=== PATIENT | male | born 1980 | race Caucasian/White ===

== ENCOUNTER 2017-04-15 23:43 | Inpatient (IN) | payer SELFPAY ==
[2017-04-16] MEDS ORDERED: Meclizine HCl 25 MG TAB ONE (01:28)
[2017-04-16 02:48] LABS: Acetaminophen Less than 6.0 mcg/mL (10.0-30.0); Salicylate Less than 8.0 mg/dL (15.0-30.0)
[2017-04-16] MEDS ORDERED: Labetalol HCl 100 MG/20 ML VIAL SLOW IVP PRN (03:38)
[2017-04-16] MEDS ORDERED: hydrALAZINE 20 MG/ML VIAL SLOW IVP PRN ×2 (03:38→03:46)
[2017-04-16] MEDS ORDERED: Calcium Carbonate 500 MG ChewTAB PO PRN (03:41)
[2017-04-16] MEDS ORDERED: Senokot 8.6 MG TAB PO PRN (03:41)
[2017-04-16] MEDS ORDERED: Ondansetron ODT 4 MG TAB PO PRN (03:41)
[2017-04-16] MEDS ORDERED: Ondansetron HCl/PF 4 MG/2 ML Vial IVP PRN (03:41)
[2017-04-16] MEDS ORDERED: cloNIDine 0.1 MG TAB PO PRN (03:46)
[2017-04-16 04:14] LABS: Troponin I Less than 0.010 ng/mL (< 0.028)
[2017-04-16] MEDS: Sodium Chloride 0.9% 1,000 ML IV SCH ×2 (04:31→17:45)
[2017-04-16] MEDS: Meclizine HCl 25 MG TAB PO SCH ×3 (04:32→20:38)
[2017-04-16 04:50] VITALS: BMI 32.1
[2017-04-16 04:56] LABS: Bilirubin Negative (Negative); Blood, Urine Negative (Negative); Glucose, Urine (Dipstick) Negative (Negative); Ketone, Urine Trace mg/dL (Negative); Nitrite Negative (Negative); Protein, Urine (Dipstick) Trace mg/dL (Neg-Trace); Urobilinogen 0.2 mg/dL (0.2-1.0)
[2017-04-16 04:58] LABS: Bacteria/HPF None Seen HPF (None Seen); Hyaline Casts/LPF 0-3 HYALINE CAST LPF (0-3 Hyaline); RBC/HPF 0-3 HPF (0-3); Squamous Epithelial 0-3 HPF (0-3); WBC/HPF 0-3 HPF (0-3)
[2017-04-16 05:15] LABS: Amphetamine Detected (NotDetected); Methadone Not Detected (NotDetected); Methamphetamine Not Detected (NotDetected)
--- NOTE | 2017-04-16 05:48 | HP ---
DATE OF ADMISSION: 04/16/2017 PRIMARY CARE PHYSICIAN: Patient follows a physician at [place]. He is unable to recall the exact n reece. CHIEF COMPLAINT: Dizziness. HISTORY OF PRESENT ILLNESS: Patient is a 36-year-old male with hypertension with ongoing tobacco ab use, presented to the emergency room at [place] with above complaints. Patient felt fine this morn ing. He forgot to take his blood pressure medicine last night, which he took this morning. He had multiple episodes of brief vision loss, lasting for less than 1 second. He had approximately 15 suc h episodes. He then smoked methamphetamine. He then went to work around 6:00 p.m. While at work, he had difficulty with walking and balance. 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 He also had some mild headache and some double vision when he arrived to the emergency room. He was unable to balance himself. He later started having nausea and vomited 5 to 6 times. No similar episode in the past. No chest pain, palpitations, syncope reported. No fever or chills reported. In the emergency room at [place], initial vital signs showed temperature 97.5, respirations 16, pu lse of 59, blood pressure 161/106 with O2 saturation 98% on room air. He received [facility]fr[place] in [place] [facility] [place]. His initial CT scan of the brain at [facility] was negative per ER report. PAST MEDICAL HISTORY: 1. Hypertension. 2. Ongoing tobacco abuse. 3. History of hepatitis C in the past. 4. Anxiety and depression. 5. PVCs requiring ablation in 2013. 6. Hyperlipidemia. PAST SURGICAL HISTORY: 1. Left knee surgery in 2000. 2. Nasal surgery in 1997. 3. PVC ablation x2 in 2013. 4. Cystoscopy and bladder wash, which was negative in 2013. ALLERGIES: Patient denies any drug allergies. CURRENT HOME MEDICATIONS: Patient is unable to recall any of his medications. We will try to obtai n list from the pharmacy. FAMILY HISTORY: Positive for mother with hyperlipidemia and hypertension. REVIEW OF SYSTEMS: The following complete review of systems was negative, unless otherwise mentione d in the HPI or below: CONSTITUTIONAL: Weight loss or gain, ability to conduct usual activities. SKIN: Rash, itching. EYES: Double vision, pain. ENT/MOUTH: Nose bleeding, neck stiffness, pain, tenderness. CARDIOVASCULAR: Palpitations, dyspnea on exertion, orthopnea. RESPIRATORY: Shortness of breath, wheezing, cough, hemoptysis, fever or night sweats. GASTROINTESTINAL: Poor appetite, abdominal pain, heartburn, nausea, vomiting, constipation, or diar og. GENITOURINARY: Urgency, frequency, dysuria, nocturia. MUSCULOSKELETAL: Pain, swelling. NEUROLOGIC/PSYCHIATRIC: Anxiety, depression. ALLERGY/IMMUNOLOGIC: Skin rash, bleeding tendency. SOCIAL HISTORY: Patient smokes on and off. He has used cannabis in the past. He also has a histor y of IV drug abuse in the past. He has been using methamphetamine on and off recently. PHYSICAL EXAMINATION: VITAL SIGNS: As discussed above. GENERAL: A 36-year-old male lying in the bed with eyes closed. No pain reported. Appears comforta ble. HEENT: Head atraumatic, normocephalic. Sclerae are anicteric. Moist mucous membranes. No oral le major. Pupils were equally reacting to light. There was horizontal nystagmus noted. NECK: Supple, no JVD, no neck stiffness. Trachea in midline. LUNGS: Clear to auscultation bilaterally. HEART: S1, S2 present. Regular rate and rhythm. No murmurs, rubs or gallops. ABDOMEN: Soft, nontender, bowel sounds present. EXTREMITIES: No edema or calf tenderness. NEUROLOGIC: Cranial nerves II through XII were normal on examination except for nystagmus. Power w as 5/5 in all extremities. Ebyrgl-wn-oqcy test was normal. Reflexes were equivocal. Sensation to touch was normal bilaterally. Gait was not assessed due to severe dizziness. SKIN: Warm and dry. PSYCHIATRY: Alert, awake, oriented x3. Normal affect. LYMPH NODES: No palpable lymph nodes in the neck. PERIPHERAL VASCULAR: Radial pulses palpable bilaterally. MUSCULOSKELETAL: No joint swelling or tenderness. LABORATORY FINDINGS AND IMAGIN. CBC showed WBC 8.9 with hemoglobin 15.1, hematocrit 45.9, platelets 334. PT, INR, PTT normal ra nge. Urine drug screen is pending at this time. Chemistries showed sodium 137, potassium 4.2, chlo ride 105, bicarbonate 21, BUN 18, creatinine 0.82. 2. CT scan of the brain by my review was negative for acute findings. 3. Telemetry monitoring by my review showed sinus rhythm without significant ST-T wave changes. IMPRESSION: 1. New onset ataxia of unclear etiology. Rule out cerebrovascular accident. 2. Methamphetamine abuse, last used on 04/15. 3. Hypertension. 4. Hyperlipidemia. 5. Ongoing tobacco abuse. 6. Anxiety and depression. Patient denies any suicidal ideation. 7. History of hepatitis C secondary to IV drugs in the past. The patient states that it was treate d by Dr. Castelan. 8. Severe dizziness with nausea and vomiting secondary to #1. PLAN: The patient will be monitored in the stroke unit. Physical therapy and occupational therapy will be consulted. We will get MRI of the brain, noncontrast. We will also get CT angiogram of the neck and head. Aspirin has been started. We will start statins. Fasting lipid profile. We will check vitamin B12 and folic acid. We will start him on scheduled meclizine. Plan of care was discussed with the patient, he stated understanding. The patient will require 2 da ys for stabilization given his considerable dizziness and inability to balance.
[2017-04-16] MEDS: Aspirin 325 mg Enteric Coated Tablet PO SCH (08:47)
[2017-04-16] MEDS ORDERED: FLU VACC QS2017-18 36 mo. & older 0.5 ML SYRINGE IM ONE (09:00)
[2017-04-16] MEDS: Acetaminophen 325 MG TAB PO PRN ×2 (10:44→21:09)
--- NOTE | 2017-04-16 11:30 | MRI ---
MRI OF THE BRAIN WITHOUT CONTRAST: COMPARISON: None. HISTORY: Vestibular stroke with dizziness that began yesterday. Difficulty standing and walking. TECHNIQUE: Multiplanar, multisequence MR images were obtained of the brain without contrast. FINDINGS: The brain demonstrates normal signal intensity on all obtained sequences. No restricted diffusion i s seen to suggest an acute infarction. There is no evidence of hydrocephalus, intracranial hemorrha ge, or extraaxial fluid collection. The expected flow voids are present. The right vertebral artery flow void is more diminutive than t he left. Please see CTA for specific findings involving the vertebral arteries. The corpus callosu m, pituitary, and craniocervical junction are unremarkable. The calvarium and overlying soft tissues are unremarkable. The visualized paranasal sinuses and mas toid air cells are well aerated. IMPRESSION: No evidence of acute intracranial abnormality. POS: [facility]
--- NOTE | 2017-04-16 12:00 | CT ---
CT ANGIO NECK AND CT ANGIO HEAD WITH 3D RENDERING: FINDINGS: CT ANGIO OF THE NECK WITH 3D RENDERING: The cervical portion of the right and left common, internal, and external carotid arteries and verte bral arteries demonstrate no evidence for focal stenosis. No other significant abnormality demonstr ated. Visualized aortic arch is unremarkable. IMPRESSION: No evidence of hemodynamically significant stenosis involving the cervical portions of the carotid o r vertebral arteries or other significant acute process. CT ANGIOGRAM OF THE HEAD INCLUDING 3d RENDERING: There is a dominant left vertebral artery. There is a very small somewhat less dense somewhat sligh tly irregular markedly narrowed right vertebral artery but without a significant focal stenosis. Th e vertebral artery and posterior cerebral arteries appear unremarkable. Intracranial carotid and mi ddle cerebral arteries and anterior cerebral arteries appear unremarkable. No evidence for calcific atherosclerotic plaque. No evidence for an aneurysm or major branch occlusion. IMPRESSION: Dominant left vertebral artery with a very narrowed slightly irregular somewhat hypoplastic-appearin g right vertebral artery with decreased contrast density within it, possibly of developmental origin given the fact that there is no other significant arteriovascular disease within the head and neck. No evidence for other major branch occlusion or intracranial aneurysm or other acute process. POS: [facility]
[2017-04-16] MEDS ORDERED: ISOVUE-370 76%-LOCM 1 ML ONE (15:52)
--- NOTE | 2017-04-16 18:58 | CON ---
DATE OF CONSULTATION: 04/16/2017 CONSULTING PHYSICIAN: Hospitalist Service. IMPRESSION: 1. Peripheral vertigo. 2. History of hypertension. 3. History of tobacco use. PLAN: 1. Prednisone 40 mg per day for 5 days. 2. The patient can be discharged home. HISTORY OF PRESENT ILLNESS: Mr. Peña is a 36-year-old man who presented with vertigo, nausea and vomiting since yesterday. His MRI of the brain was negative. He denies any prodromal illness. He denies any recent history of trauma. He has never had anything like this in the past. PAST MEDICAL HISTORY: Hypertension, tobacco use, hepatitis C in the past, anxiety, PVCs, hyperlipid emia. PAST SURGICAL HISTORY: Knee surgery, nasal surgery, PVCs, hysteroscopy. ALLERGIES: None reported. MEDICATIONS: None currently. FAMILY HISTORY: Noncontributory. REVIEW OF SYSTEMS: Positive for some mild headache, but no hearing loss or tinnitus. No facial num bness or tingling. No josafat weakness or incoordination of the extremities. PHYSICAL EXAMINATION: GENERAL: A well-nourished middle-aged man in no distress. VITAL SIGNS: Blood pressure 141/79, pulse 68, respirations 18, temperature 98.1. HEENT: Pupils equal and reactive. Conjunctivae clear. Oropharynx clear. NECK: Supple. No lymphadenopathy noted. NEUROLOGIC: He is alert and appropriate. His speech is fluent and clear. Cranial nerves are intac t with some fairly prominent horizontally beating nystagmus towards the left. Motor strength was sy mmetric. Cerebellar testing showed normal finger to nose and rapid alternating movements. Gait was not tested. No abnormal movements were seen. MRI of the brain was reviewed. CT angiogram of the head was also performed which did not show any significant findings within a dom inant left vertebral artery. SUMMARY: This is a 36-year-old man who presents with acute vertigo, nausea, and vomiting with a neg ative MRI of the brain; therefore, it is more likely secondary to vestibular neuronitis hopefully wi ll respond to steroids.
[2017-04-16] MEDS ORDERED: predniSONE 20 MG TAB PO SCH (20:15)
[2017-04-16] MEDS ORDERED: Zolpidem Tartrate 5 MG TAB PO SCH (21:00)
[2017-04-16] MEDS ORDERED: Atorvastatin Calcium 10 MG TAB PO SCH (21:00)
[2017-04-17] MEDS ORDERED: Nicotine 14 MG PATCH TD SCH (00:15)
[2017-04-17] MEDS ORDERED: hydrALAZINE 20 MG/ML VIAL SLOW IVP PRN (03:45)
[2017-04-17] MEDS ORDERED: cloNIDine 0.1 MG TAB PO PRN (03:45)
[2017-04-17] MEDS: Sodium Chloride 0.9% 1,000 ML IV SCH (05:02)
[2017-04-17 05:20] LABS: #Lymphocytes 0.5 thou/uL (1.20-3.40); #Monocytes 0.2 thou/uL (0.11-0.59); #Neutrophils 6.8 thou/uL (1.40-6.50); %Eosinophils 0.1 % (0.0-10.0); %Lymphocytes 6.4 % (21.0-51.0); %Monocytes 2.7 % (0.0-10.0); Hematocrit 47.8 % (42.0-52.0); Red Blood Cell (RBC) Count 4.99 mill/uL (4.70-6.10); White Blood Cell (WBC) Count 7.5 thou/uL (4.8-10.8)
[2017-04-17] MEDS: Meclizine HCl 25 MG TAB PO SCH ×2 (05:29→14:59)
[2017-04-17 05:44] LABS: ALT (SGPT) 28 U/L (8-55); AST (SGOT) 19 U/L (5-34); Alkaline Phosphatase 96 U/L (40-150); Anion Gap 13 mmol/L (10-20); BUN (Urea Nitrogen) 12 mg/dL (8.9-20.6); Bilirubin, Total 0.6 mg/dL (0.2-1.2); Calc. Creatinine Clearance 210 mL/min (70-130); Calcium 9.5 mg/dL (7.8-10.44); Carbon Dioxide 22 mmol/L (22-29); Chloride 104 mmol/L (98-107); Cholesterol 253 mg/dl (< 200 Desired); Estimated GFR-MDRD Greater than 90; Globulin 3.1 g/dL (2.4-3.5); LDL Cholesterol, Calculated 182 mg/dL; Magnesium 2.2 mg/dL (1.6-2.6); Phosphorus 3.2 mg/dL (2.3-4.7); Protein, Total 7.3 g/dL (6.0-8.3)
[2017-04-17] MEDS ORDERED: predniSONE 20 MG TAB PO SCH (08:00)
[2017-04-17] MEDS ORDERED: Enoxaparin Sodium 40 MG/0.4 ML SYRINGE SC SCH (09:00)
[2017-04-17] MEDS: Aspirin 325 mg Enteric Coated Tablet PO SCH (09:04)
[2017-04-17 12:02] VITALS: TEMP 97.8
[2017-04-17 12:50] VITALS: BP 148/95
--- NOTE | 2017-04-17 14:13 | DIS ---
DATE OF ADMISSION: 04/16/2017 DATE OF DISCHARGE: 04/17/2017 DISCHARGE DIAGNOSES: 1. Methamphetamine abuse. 2. Vestibular neuritis in the left ear. 3. Left beating nystagmus. 4. Dysequilibrium. CONSULTATIONS: Neurology, 04/16/2017. PROCEDURES: CT angiography, brain MRI, 04/16/2017 that showed no acute abnormalities. HISTORY OF PRESENT ILLNESS/HOSPITAL COURSE: Mr. Peña is a 36-year-old gentleman with no significa nt past medical history who presented to Emergency Department for dizziness. He felt fine the morning of admission, did not take the blood pressure medicine that he normally leah es and had multiple episodes of brief vision loss, lasting for less than a second and occur about 15 times. He then decided to smoke methamphetamine. Apparently, he has a longstanding history using about $40 worth of meth a day. After using the methamphetamines, the patient went to work, but had difficulty walking imbalance wit h severe dizziness. He said he came to the emergency department for evaluation when he started havi ng nausea and vomiting about 5-6 times. In the ER, workup was negative. White blood cell count was okay. Vitals were okay. CT scan of the brain was negative for acute findings. Telemetry was negative. The patient was placed in observation, rule out for stroke, and Neurology was consulted. From 04/16/2017 to 04/17/2017, the patient's symptoms were better controlled. Dizziness was better with the meclizine, he had no further nausea or vomiting. MRI/CTA were negative, Neurology saw the patient and felt that he may have vestibular neuritis and placed him on prednisone for a 5-day cours e. This morning, he was still having some dizziness and nystagmus, but no nausea, normal vitals, and wa s able to get up with a walker. He was subsequently discharged with outpatient followup. DISCHARGE PHYSICAL EXAMINATION: The patient was seen and examined on the day of discharge. DISCHARGE PLAN AND DISPOSITION: Were discussed with the patient face to face at the bedside. All q uestions were answered. Greater than 35 minutes were spent discussing with the patient. DISCHARGE MEDICATIONS: 1. Meclizine 25 mg p.o. t.i.d. p.r.n. dizziness, prescription of 40 tablets with 1 refill given. 2. Prednisone 40 mg p.o. q.a.m. for 5 days, prescription given for 20 mg tablets 2 tablets daily wi th no refills. 3. Clonidine 0.1 mg p.o. b.i.d. prior to admission. 4. Ambien 10 mg p.o. at bedtime p.r.n., it was on prior to admission. 5. Procardia 60 mg p.o. daily on prior to admission. 6. Metoprolol succinate 50 mg p.o. b.i.d. on prior to admission. 7. Lipitor 20 mg p.o. at bedtime on prior to admission. FOLLOWUP APPOINTMENTS: 1. Primary care physician within [address] Curtis in 2-3 weeks per his clinic schedule. DISCHARGE ACTIVITY: As tolerated. Patient was given a note excusing him of work for this week unti l his symptoms resolve and can be truncated or extended per his primary care doctor. DISCHARGE DIET: Heart healthy. DISCHARGE INSTRUCTIONS: Return to the emergency department for worsening or new symptoms.
== END 2017-04-17 14:25 | disposition home or self-care (01) | DRG 156 ==
LOC: ERS 23:43 → ERHOLD 04-16 02:00 → OBSVTOIN 04-16 02:00 → 2SE 04-16 04:21
PROVIDERS: ADMIT Internal Medicine; ATTEND Internal Medicine
DX: H93.3X2 Disorders of left acoustic nerve (principal); I10 Essential (primary) hypertension; F15.10 Other stimulant abuse, uncomplicated; H55.00 Unspecified nystagmus; F17.210 Nicotine dependence, cigarettes, uncomplicated; R27.0 Ataxia, unspecified; F41.9 Anxiety disorder, unspecified; F32.9 Major depressive disorder, single episode, unspecified; E78.5 Hyperlipidemia, unspecified; Z86.19 Personal history of other infectious and parasitic diseases; F19.11 Other psychoactive substance abuse, in remission
CPT/HCPCS: 36415; 70496; 70498; 70551; 80053; 80061; 80306; 80307; 81001; 82607; 82746; 83735; 84100; 84484; 85025; 90471; 90682; 90732; 93306; 99406; G0008; G0009; G8978-GP-CM; G8979-GP-CK; J1650; J7506; Q2036

== ENCOUNTER 2017-04-20 18:25 | Emergency (ER) | payer SELFPAY ==
[2017-04-20] MEDS ORDERED: Meclizine HCl 25 MG TAB ONE (19:47)
[2017-04-20] MEDS ORDERED: predniSONE 20 MG TAB ONE (19:47)
[2017-04-20 20:38] LABS: Bilirubin Negative (Negative); Blood, Urine Negative (Negative); Glucose, Urine (Dipstick) Negative (Negative); Ketone, Urine Negative (Negative); Nitrite Negative (Negative); Protein, Urine (Dipstick) Negative (Neg-Trace); Urobilinogen 0.2 mg/dL (0.2-1.0)
[2017-04-20 20:49] LABS: Amphetamine Not Detected (NotDetected); Methadone Not Detected (NotDetected); Methamphetamine Not Detected (NotDetected)
== END 2017-04-20 21:54 | disposition home or self-care (01) ==
LOC: ERS 18:25
DX: H83.09 Labyrinthitis, unspecified ear (principal); I10 Essential (primary) hypertension; I49.9 Cardiac arrhythmia, unspecified; F17.210 Nicotine dependence, cigarettes, uncomplicated
CPT/HCPCS: 80306; 81003; 93005; J7506

== ENCOUNTER 2017-09-19 21:10 | Emergency (ER) | payer OTHER ==
[2017-09-19 22:09] LABS: #Basophils 0.1 thou/uL (0.0-0.2); #Eosinphils 0.3 thou/uL (0.0-0.7); #Lymphocytes 1.9 thou/uL (1.20-3.40); #Monocytes 0.6 thou/uL (0.11-0.59); #Neutrophils 4.1 thou/uL (1.40-6.50); %Basophils 1.1 % (0.0-1.0); %Eosinophils 4.6 % (0.0-10.0); %Lymphocytes 27.4 % (21.0-51.0); %Monocytes 8.7 % (0.0-10.0); %Neutrophils 58.2 % (42.0-75.0); Hemoglobin 15.9 g/dL (14.0-18.0); Mean Corpuscular HGB CONC 33.5 g/dL (32.0-36.0); Mean Corpuscular Hemoglobin 31.4 pg (27.0-31.0); Mean Corpuscular Volume 93.5 fl (80.0-94.0); Mean Platelet Volume 7.2 fL (7.4-10.4); Platelet Count 391 thou/uL (130-400); RBC Distribution Width 12.1 % (11.5-14.5); Red Blood Cell (RBC) Count 5.07 mill/uL (4.70-6.10); White Blood Cell (WBC) Count 7.1 thou/uL (4.8-10.8)
--- NOTE | 2017-09-19 22:31 | RAD ---
AP VIEW CHEST: INDICATIONS: Chest pain. Palpitations. COMPARISON: 09/24/2016 FINDINGS: The lungs are clear. The cardiomediastinal silhouette is within normal limits. No acute osseous abn ormality is evident. IMPRESSION: No acute cardiopulmonary abnormality. POS: [facility]
[2017-09-19 22:33] LABS: ALT (SGPT) 37 U/L (8-55); AST (SGOT) 24 U/L (5-34); Albumin 4.7 g/dL (3.5-5.0); Alkaline Phosphatase 78 U/L (40-150); Anion Gap 14 mmol/L (10-20); BUN (Urea Nitrogen) 18 mg/dL (8.9-20.6); Bilirubin, Total 0.3 mg/dL (0.2-1.2); CK (CPK) 157 U/L (30-200); Calc. Creatinine Clearance 0 mL/min (70-130); Calcium 9.3 mg/dL (7.8-10.44); Carbon Dioxide 24 mmol/L (22-29); Chloride 107 mmol/L (98-107); Estimated GFR-MDRD 80; Globulin 2.9 g/dL (2.4-3.5); Glucose 105 mg/dL (70-105); Lipase 71 U/L (8-78); Protein, Total 7.6 g/dL (6.0-8.3); Sodium 141 mmol/L (136-145)
[2017-09-19 22:35] LABS: Troponin I Less than 0.010 ng/mL (< 0.028)
== END 2017-09-20 00:31 | disposition home or self-care (01) ==
LOC: ERS 21:10
DX: R07.89 Other chest pain (principal); I10 Essential (primary) hypertension; F41.9 Anxiety disorder, unspecified; F32.9 Major depressive disorder, single episode, unspecified; F17.210 Nicotine dependence, cigarettes, uncomplicated; E78.5 Hyperlipidemia, unspecified; I49.9 Cardiac arrhythmia, unspecified; Z79.899 Other long term (current) drug therapy
CPT/HCPCS: 36415; 71045; 80053; 82553; 83690; 83880; 84484; 85025; 93005

== ENCOUNTER 2019-04-16 12:39 | Outpatient (CLI) | payer OTHER ==
--- NOTE | 2019-04-16 14:38 | MRI ---
MRI cervical spine noncontrast: DATE: 04/16/2019 HISTORY: 38 year old male with left cervical radiculopathy and cervicalgia. FINDINGS: There are several subcentimeter small focal CSF-signal intensity clustered lesions at the inferior as pect of the right cerebellar hemisphere, consistent with tiny old lacunar infarctions. Cervical spinal cord is normal in size and signal. Vertebral body heights are maintained. Alignment i s normal. There is straightening of the normal cervical curvature, suggestive of muscle spasm. No major bone marrow signal abnormality identified. Cervical spinal canal is diffusely small in caliber on a congenital basis due to developmentally short pedicles. This is exacerbated by cervical spondylosis at certain levels. Moderate bilateral facet DJD at C7-T1, left greater than right. No hig h-grade facet DJD at any other level. Disc spaces are maintained at all levels. Findings by individual levels are as follows: C1-2: No central stenosis. C2-3: No additional findings. C3-4: Mild broad-based disc-osteophyte complex encroaches upon anterior aspect of spinal canal, exace rbating the developmentally small caliber spinal canal, causing moderate central spinal canal stenosis. Small bilateral uncinate process osteophytes encroach upon neural foramina. Little or no bi lateral neural foraminal stenosis. C4-5: Mild broad-based disc-osteophyte complex encroaches upon anterior aspect of spinal canal, exace rbating the developmentally small caliber spinal canal, causing moderate central spinal canal stenosis. Small bilateral uncinate process osteophytes encroach upon neural foramina, causing mild to moderate bilateral neural foraminal stenosis, right greater than left. C5-6: In addition to broad-based disc/osteophytic bar complex encroaching upon central spinal canal c ausing moderate to severe central spinal canal stenosis, there is a small focal right lateral disc herniation, contiguous with small to moderate-sized right uncinate process osteophytes, causing moder ate to severe right neural foraminal stenosis, and effacement of the right lateral corner of the thecal sac, possibly impinging on the right C6 nerve root. No left-sided neural foraminal stenosis. C6-7: No central or neural foraminal stenosis. C7-T1: No central stenosis. Mild to moderate bilateral neural foraminal stenosis. IMPRESSION: 1. 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 2. Mild cervical spondylosis consisting of several levels of mild degenerative disc disease, exacerba ting a developmentally small caliber spinal canal. 3. Central spinal canal stenosis and neural foraminal stenosis at multiple levels as detailed above.
--- NOTE | 2019-04-16 15:06 | MRI ---
Lumbar spine MRI without contrast: 04/16/2019 TECHNIQUE: Multiplanar multisequence MR imaging of the lumbar spine without contrast. COMPARISON: None HISTORY: Low back pain with left lower extremity radiculopathy FINDINGS: On the basis of 5 lumbar type vertebral bodies, conus medullaris terminates at L1. T12-L1: Mild bilateral facet hypertrophy with no significant central canal or neural foraminal stenos is. L1-2: No central canal or neural foraminal stenosis. L2-3: No central canal or neural foraminal stenosis L3-4: No central canal or neural foraminal stenosis. L4-5: Mild bilateral facet hypertrophy with no significant central canal or neural foraminal stenosis . L5-S1: Partial disc desiccation. Mild disc space narrowing. No significant central canal or neural fo raminal stenosis. The sagittal STIR imaging demonstrates no focal area of osseous marrow edema. Image retroperitoneal structures demonstrate no acute findings. IMPRESSION: No significant central canal or neural foraminal stenosis noted within the lumbar spine.
== END 2019-04-16 12:40 | disposition home or self-care (01) ==
LOC: BICMRI 12:39
PROVIDERS: ATTEND Neurological Surgery
DX: M54.5 Low back pain (principal); M47.22 Other spondylosis with radiculopathy, cervical region; M48.02 Spinal stenosis, cervical region
CPT/HCPCS: 72141; 72148

== ENCOUNTER 2019-10-21 19:30 | Outpatient (CLI) | payer OTHER | END 2019-10-21 19:31 | disposition home or self-care (01) | LOC: SLEEPLAB 19:30 | PROVIDERS: ATTEND Internal Medicine Pulmonary Disease | DX: G47.33 Obstructive sleep apnea (adult) (pediatric) (principal); E66.9 Obesity, unspecified; F41.9 Anxiety disorder, unspecified; G47.00 Insomnia, unspecified; F32.9 Major depressive disorder, single episode, unspecified; I49.9 Cardiac arrhythmia, unspecified; I10 Essential (primary) hypertension; G47.52 REM sleep behavior disorder; Z68.36 Body mass index [BMI] 36.0-36.9, adult | CPT/HCPCS: 95810 ==

== ENCOUNTER 2020-05-28 17:49 | Emergency (ER) | payer SELFPAY ==
[2020-05-28 18:21] LABS: #Eosinphils 0.5 thou/uL (0.0-0.7); #Lymphocytes 1.6 thou/uL (1.20-3.40); #Monocytes 0.7 thou/uL (0.11-0.59); #Neutrophils 6.9 thou/uL (1.40-6.50); %Basophils 0.2 % (0.0-1.0); %Lymphocytes 16.6 % (21.0-51.0); %Monocytes 7.1 % (0.0-10.0); %Neutrophils 71.1 % (42.0-75.0); Hemoglobin 15.7 g/dL (14.0-18.0); Mean Corpuscular HGB CONC 32.8 g/dL (32.0-36.0); Mean Corpuscular Hemoglobin 30.4 pg (27.0-31.0); Mean Corpuscular Volume 92.6 fL (78.0-98.0); Mean Platelet Volume 7.1 fL (7.4-10.4); Platelet Count 402 thou/uL (130-400); Red Blood Cell (RBC) Count 5.17 mill/uL (4.70-6.10); White Blood Cell (WBC) Count 9.7 thou/uL (4.8-10.8)
[2020-05-28 18:38] LABS: ALT (SGPT) 36 U/L (8-55); AST (SGOT) 24 U/L (5-34); Albumin 4.4 g/dL (3.5-5.0); Alkaline Phosphatase 95 U/L (40-110); Anion Gap 17 mmol/L (10-20); BUN (Urea Nitrogen) 12 mg/dL (8.9-20.6); Bilirubin, Total 0.6 mg/dL (0.2-1.2); Calc. Creatinine Clearance 0 mL/min (70-130); Calcium 9.1 mg/dL (7.8-10.44); Carbon Dioxide 23 mmol/L (22-29); Chloride 104 mmol/L (98-107); Globulin 2.9 g/dL (2.4-3.5); Glucose 100 mg/dL (70-105); Lipase 34 U/L (8-78); Potassium 4.3 mmol/L (3.5-5.1); Protein, Total 7.3 g/dL (6.0-8.3); Sodium 140 mmol/L (136-145)
--- NOTE | 2020-05-28 18:40 | RAD ---
EXAM: Single view of the chest HISTORY: Chest pain COMPARISON: 09/19/2017 FINDINGS: Single view of the chest shows a normal sized cardiomediastinal silhouette. There is no khloe dence of consolidation, mass, or pleural effusion. Degenerative changes are seen in the spine. IMPRESSION: No evidence of acute cardiopulmonary disease
[2020-05-28 21:28] LABS: Troponin I Less than 0.010 ng/mL (< 0.028)
== END 2020-05-28 20:32 | disposition home or self-care (01) ==
LOC: ERS 17:49
DX: R07.89 Other chest pain (principal); R00.2 Palpitations; I10 Essential (primary) hypertension; E78.00 Pure hypercholesterolemia, unspecified; F17.210 Nicotine dependence, cigarettes, uncomplicated; Z79.899 Other long term (current) drug therapy
CPT/HCPCS: 36415; 71045; 80053; 83690; 84484; 85025; 93005